=== PATIENT | female | born 1975 | race Caucasian/White ===

== ENCOUNTER 2016-03-25 06:59 | Day surgery (SDC) | payer MEDICARE, MEDICAID ==
[2016-03-25 08:00] LABS: ABSOLUTE BASOPHILS # (AUTO) 0.1 10^3/uL (0.0-0.2); ABSOLUTE EOSINOPHILS # (AUTO) 0.4 10^3/uL (0.0-0.6); ABSOLUTE LYMPHOCYTES (AUTO) 1.9 10^3/uL (0.5-4.7); ABSOLUTE MONOCYTES (AUTO) 0.5 10^3/uL (0.1-1.4); BASOPHILS % (AUTO) 0.8 % (0-2); EOSINOPHILS % (AUTO) 6.2 % (0-6); HEMATOCRIT 42.7 % (36.0-47.0); HEMOGLOBIN 13.9 g/dL (12.0-15.5); LYMPHOCYTES % (AUTO) 27.4 % (13-45); MEAN CORPUSCULAR HEMOGLOBIN 30.7 pg (27.0-33.4); MEAN CORPUSCULAR HGB CONC 32.4 g/dL (32.0-36.0); MEAN CORPUSCULAR VOLUME 95 fl (80-97); MONOCYTES % (AUTO) 6.7 % (3-13); RED BLOOD COUNT 4.52 10^6/uL (3.72-5.28); RED CELL DISTRIBUTION WIDTH 14.3 % (11.5-14.0); SEGMENTED NEUTROPHILS % (AUTO) 58.9 % (42-78); WHITE BLOOD COUNT 6.8 10^3/uL (4.0-10.5)
[2016-03-25] MEDS ORDERED: FENTANYL CITRATE INJ/PF 100 MCG/2 ML AMPUL ONE (08:04)
[2016-03-25] MEDS ORDERED: PROPOFOL INJ 200 MG/20 ML VIAL IV ONE (08:05)
[2016-03-25] MEDS ORDERED: MIDAZOLAM 2 MG/2 ML INJ ONE (08:05)
[2016-03-25] MEDS ORDERED: DEXMEDETOMIDINE INJ 80 MCG/20 ML VIAL IV ONE (08:05)
[2016-03-25] MEDS ORDERED: LIDOCAINE 0.5% INJ-PF (5 MG/ML) 50 ML SDV ONE (08:08)
[2016-03-25 08:14] LABS: PROTHROMBIN TIME 39.4 SEC (11.4-15.4)
[2016-03-25] MEDS ORDERED: ONDANSETRON HCL INJ/PF 4 MG/2 ML SDV ONE (08:15)
[2016-03-25] MEDS ORDERED: ALBUTEROL SULFATE 0.083% NEB 2.5 MG/3 ML AMPUL NEB ONE (08:15)
[2016-03-25 08:20] LABS: ANION GAP 12 (5-19); BLOOD UREA NITROGEN 33 mg/dL (7-20); CARBON DIOXIDE 28 mmol/L (22-30); CHLORIDE 99 mmol/L (98-107); CREATININE RESULT 11.23 mg/dL (0.52-1.25); GLUCOSE 102 mg/dL (75-110); POTASSIUM 4.5 mmol/L (3.6-5.0)
--- NOTE | 2016-03-25 09:38 | PDOC DISCHARGE SUMMARY ---
Discharge Summary (SDC) - Discharge Final Diagnosis: 1 malfunctioning AV fistula, right brachiocephalic. #2 end-stage renal disease on hemodialysis. #3 hypertension. Date of Surgery: 03/25/16 Discharge Date: 03/25/16 Condition: Fair Treatment or Instructions: #1 activities within moderation encouraged. #2 follow up in my office by appointment in about 1 week. Call for appointment. #3 the wounds covered clean and dry until removed in dialysis. #4 hold off on school/work until evaluation in office. #5 may shower in 48 hours, keep operated area as dry as possible. #6 discharge from ambulatory when ASU criteria met. #7 medications per medication reconciliation sheet. Discharge Diet: Other (Comments) - Renal Respiratory Treatments at Home: Deep Breathing/Coughing Discharge Activity: Activity As Tolerated Report the Following to Your Physician Immediately: Shortness of Breath, Unusual Bleeding
[2016-03-25] MEDS ORDERED: MORPHINE SULFATE 10 MG/ML INJ ONE (09:40)
--- NOTE | 2016-03-25 09:43 | Operative Report ---
Operative Report DATE OF SURGERY: 03/25/16 PREOPERATIVE DIAGNOSIS: 1 malfunctioning AV fistula, right brachiocephalic. #2 end-stage renal disease on hemodialysis. #3 hypertension. POSTOPERATIVE DIAGNOSIS: [address] fistula, right brachiocephalic. # 2 end-stage renal disease on hemodialysis. #3 hypertension. OPERATION: #1 ultrasound evaluation and real-time access into fistula. #2 angioplasty. #3 angiogram and interpretation. SURGEON: PALAK FRAZIER JOURNEYMAN PATTERNMAKER: none ANESTHESIA: LMAC TISSUE REMOVED OR ALTERED: Not applicable. COMPLICATIONS: None ESTIMATED BLOOD LOSS: 2 mL. INTRAOPERATIVE FINDINGS: Of a well-founded right brachiocephalic fistula. Feels normal. Stenosis about 60% of the adjacent lumen noted at 10 cm. Resolved with angioplasty. Retrograde evaluation of the arterial area shows some, probably noncritical narrowing in the first 2 cm of the perianastomotic area otherwise quite fine. The circuit really good up to and including the subclavian. I feel this fistula should work fine, in future a retrograde address of the perianastomotic area probably was a 5 mm balloon may be optimal. Interventions need to be cautious of this patient with a viola fistula and lorazepam high INR, over 3 today. PROCEDURE: PROCEDURE: After verifying the procedure and having obtained informed consent, the patient's right arm was prepared with Chlorhexidine and draped out with sterile linen. Local anesthesia infiltrated. Under ultrasound evaluation the fistula noted to have a possibly of stenosis at about 10 cm. Also some-year- old thrombus noted in the perianastomotic area. Percutaneous access into the fistula obtained at about 15 cm. A retrograde angiogram done. Based and this antegrade access was decided upon. Percutaneous access into the fistula ,[ antegrade], obtained about [2 cm] from the arteriovenous anastomosis using a micro puncture needle followed by micro puncture wire and then a micro puncture catheter. Angiogram demonstrated the aforementioned findings. Angioplasty was elected. A 0.035 [place] wire was inserted, and over this, a 6 Setswana short introducer was placed, this was followed by a [8] angioplasty balloon . Angioplasty was serially done from the 20 cm area down to the introducer. Inflating up to 14 atmospheres for a minute at a time.]. This was done gently increasing about to atmospheres every 30 seconds. Completion angiogram demonstrated [satisfactory result]. The instrumentation was now withdrawn over a short piece of catheter and a 5-0 Prolene suture. Dressings applied, procedure concluded. Exposure time: 0.2 minutes Radiation: 24 carlos per centimeter squared Contrast: 25 mL of Isovue-M 300, low osmolality. DICTATING PHYSICIAN: PALAK ISSA M.D. cc: PALAK ISSA M.D. ([id number]) >>
--- NOTE | 2016-03-25 09:47 | PDOC H&P ---
General Chief Complaint: This patient was fistula has demonstrated a whistle in the upper area with decreased flows has been referred for evaluation and possible angioplasty. - Diagnosis (1) Dialysis AV fistula malfunction Is this a Current Diagnosis?: Yes (2) End-stage renal disease on hemodialysis Is this a Current Diagnosis?: Yes (3) Hypertension Is this a Current Diagnosis?: Yes - Current Medications/Allergies Home Medications: Albuterol Sulfate [Albuterol Sulfate 2.5mg/3 mL] 2.5 mg IH PRN PRN 01/21/16 Albuterol Sulfate [Proair HFA] 1 puff IH PRN PRN 01/21/16 Calcium Acetate [Phoslo 667 mg Capsule] 1 tab PO DAILY 01/21/16 Clonazepam [Klonopin] 0.5 mg 01/21/16 Fentanyl Citrate/Pf [Fentanyl 50 Mcg/ml Syringe] 50 mcg TD 01/21/16 Gabapentin Enacarbil [Horizant] 300 mg PO DAILY 01/21/16 Ipratropium [place] [Atrovent 0.02% Neb 0.5 mg/2.5 ml Ampul] 1 puff IH PRN PRN 01/21/16 Omeprazole 20 mg PO DAILY 01/21/16 Ondansetron HCl [Zofran] 4 mg PO DAILY 01/21/16 Oxymorphone HCl 10 mg PO DAILY 01/21/16 Trazodone HCl [Desyrel 50 mg Tablet] 50 mg PO DAILY 01/21/16 Warfarin Sodium 5 mg PO DAILY 01/21/16 Allergies/Adverse Reactions: acetaminophen [From Percocet] Allergy (Verified 01/21/16 11:21) adhesive Allergy (Verified 01/21/16 11:22) oxycodone [From Percocet] Allergy (Verified 01/21/16 11:21) Past Medical History Cardiac Medical History: Reports: Hypertension Denies: Coronary Artery Disease, Myocardial Infarction Pulmonary Medical History: Reports: Asthma Denies: Bronchitis, Chronic Obstructive Pulmonary Disease (COPD), Pneumonia Neurological Medical History: Denies: Seizures Musculoskeltal Medical History: Denies: Arthritis Hematology: Denies: Anemia Family History Parental Family History Reviewed: Yes Children Family History Reviewed: No Sibling(s) Family History Reviewed.: No Social History Smoking Status: Current Every Day Smoker Physical Exam Vital Signs: Temp Pulse Resp BP Pulse Ox 97.4 F 75 16 126/76 H 96 01/24/17 08:06 03/25/16 08:06 03/25/16 08:06 03/25/16 08:06 03/25/16 08:06 Intake & Output 03/24/16 03/25/16 03/26/16 06:59 06:59 06:59 Weight 115.67 kg 115.67 kg Additional comments: A well-developed well-nourished lady. Moderately increased body habitus. Mild chronic psycho emotional distress. Eyes membranes is pink and moist, sclerae anicteric. Respiratory no shortness of breath. Breath sounds are normal and equal bilaterally. Cardiac: Heart sounds 1 and 2 heard, no murmurs. Upper extremities show normal range of movement and pulsatile to the radials. Normal capillary refill. A cephalic to brachial fistula is appreciated. In the right upper extremity. Fairly normal to palpation Psychiatric the patient is alert, oriented, judgment, memory, insight normal mild chronic anxiety. Impression/Plan Impression: #1 malfunctioning AV fistula, right brachiocephalic. #2 end-stage renal disease on hemodialysis. #3 hypertension. Plan: In this patient with a viola fistula, improvement to the point of her labral axis is important. She is on Coumadin with a high INR which makes it a challenge to safely intervene. The hope is to evaluate the fistula on angiogram and to do angioplasty of needed. The risks, benefits, expected outcome and alternatives are familiar to the patient. She wishes to proceed.
[2016-03-25] MEDS ORDERED: DIPHENHYDRAMINE HCL 50 MG/ML VIAL IV PRN (09:54)
[2016-03-25] MEDS ORDERED: FENTANYL CITRATE INJ/PF 100 MCG/2 ML AMPUL IV PRN ×3 (09:54)
--- NOTE | 2016-03-25 11:46 | EKG REPORT ---
SEVERITY:- NORMAL ECG - SINUS RHYTHM : Confirmed by: Nery Henning MD 25-Mar-2016 11:46:09
[2016-03-25 12:44] VITALS: BP 109/57
== END 2016-03-25 11:45 | disposition home or self-care (01) ==
LOC: OROUT 06:59
PROVIDERS: ATTEND Surgery
PROC: 057D3DZ Dilation of Right Cephalic Vein with Intraluminal Device, Percutaneous Approach (ICD-10-PCS; principal; 2016-03-25)
DX: T82.858A Stenosis of other vascular prosthetic devices, implants and grafts, initial encounter (principal); Y83.2 Surgical operation with anastomosis, bypass or graft as the cause of abnormal reaction of the patient, or of later complication, without mention of misadventure at the time of the procedure; I12.0 Hypertensive chronic kidney disease with stage 5 chronic kidney disease or end stage renal disease; N18.6 End stage renal disease; Z99.2 Dependence on renal dialysis; Z79.01 Long term (current) use of anticoagulants; G47.30 Sleep apnea, unspecified; M19.90 Unspecified osteoarthritis, unspecified site; F17.210 Nicotine dependence, cigarettes, uncomplicated; G89.4 Chronic pain syndrome; Z79.51 Long term (current) use of inhaled steroids; Z79.899 Other long term (current) drug therapy; Z87.891 Personal history of nicotine dependence; Z88.5 Allergy status to narcotic agent; Z86.711 Personal history of pulmonary embolism
CPT/HCPCS: 36415; 84703; 85025; 85610; 85730; 80048; 36902; 76937; 71010; 93005; 93010; C1725; C1752; Q9967; C1769; J2250; J3010; J3490 ×2; J2270; J2405; J2704; A9270; J1644; 1844; 36901